=== PATIENT | male | born 1970 | race Caucasian/White ===

== ENCOUNTER 2017-01-14 11:22 | Inpatient (IN) | payer OTHER ==
[~2017-01-14] VITALS: Ht 182.8 cm; Wt 59.9 kg
--- NOTE | ~2017-01-14 | CON ---
[place], [place] REPORT OF CONSULTATION NAME: MELISSA MARISCAL UNIT #: [id number] ROOM: 427 DOCTOR: IVETT HER ED.D (ALEX) BIRTHDATE: [birth year] DOS: 01/15/2017 HISTORY OF PRESENT ILLNESS: The patient is a 46-year-old male referred by the hospitalist for depression and alcohol dependence. At the present time, this patient is in the intensive care unit [facility]. He states he is and has several stepchildren. He last worked at the ____ [employer] in [facility]. He does not have a family physician. However, his medical history is pertinent for depression, alcohol dependence and hypertension. He was prescribed lisinopril; however, he was not taking the medication because he had not gone to the doctor. He states he drinks 1-2 cases of beer every few days bring his total to at least 4 cases of beer a week. He also drinks vodka on at times. He smokes 1 pack of cigarettes per day. He denies any other substance abuse issues. This patient was awake, alert and oriented in all three spheres. He denies any auditory or visual hallucinations or delusions and denies suicidal ideation or plan. He states he has been depressed and anxious about quitting alcohol, but states he needs help. He did follow at [facility] in [place], [place] in the past but did not follow up much with his treatment. He states he is willing to follow up after discharge and he will most likely follow up either at the counseling center or at [facility] for dual diagnosis. Again, he adamantly denies any suicidal ideation or plan, but does admit to feeling depressed and anxious. DIAGNOSES: 1. Major depressive disorder, recurrent. 2. Alcohol dependence. 3. Alcohol withdrawal. RECOMMENDATIONS: The patient should follow up at the counseling center or [facility] for outpatient treatment of alcoholism and depression and anxiety once he is discharged from the hospital. Thank you very much for this consult. IVETT HER ED.D CM:CONSTR:REPORT OF CONSULTATION 1345 01/16/17 0455 interface
[~2017-01-14 11:22] MED LIST: AMOXICILLIN500 MG PO; AMOXIL500 MG PO; ANAPROX DS550 MG PO; BACTRIM DS 8001 TAB PO; CHLORDIAZEPOXID25 M1 PO; DOXYCYCLINE100 M3 PO; KEFLEX500 M1 PO; NEXIUM40 MG PO; NORCO 325 MG-51 TAB PO; OMEPRAZOLE MAGN20 MG PO; PARAFON FORTE500 MG PO; PREDNICOT10 MG PO; PREDNISONE20 MG PO; PRILOSEC20 M1 PO; PRILOSEC20 M2 PO; PRINIVIL10 MG PO; Peridex 473 ML473 ML PO; ULTRAM50 MG PO; WELLBUTRIN XL300 MG PO; ZESTRIL,PRINIVI10 MG PO; ZITHROMAX Z PA250 MG PO; ZYRTEC10 MG PO
[2017-01-14 11:35] VITALS: BP 184/106
[2017-01-14 11:57] LABS: BASO # 0.1 10*3/uL (0.0-0.1); EOS % 0.5 % (1.0-4.0); HEMATOCRIT 53.5 % (42.0-52.0); HEMOGLOBIN 18.5 g/dl (14.0-18.0); LYMPH # 1.7 10*3/uL (1.3-4.4); LYMPH % 29.5 % (27.0-41.0); MEAN CELL VOLUME 93.9 fl (80.0-94.0); MEAN CORPUSCULAR HGB 32.5 pg (27.0-31.0); MEAN CORPUSCULAR HGB CONC 34.6 g/dl (33.0-37.0); MEAN PLATELET VOLUME 9.1 fl (9.6-12.3); MONO # 0.9 10*3/uL (0.1-1.0); MONO % 15.9 % (3.0-9.0); NEUT # 3.1 10*3/uL (2.3-7.9); NEUT % 52.9 % (47.0-73.0); PLATELET COUNT AUTOMATED 201 10*3/uL (130-400); RED CELL DISTRI WIDTH 13.3 % (0-14.5); WHITE BLOOD COUNT 5.8 10*3/uL (4.8-10.8)
[2017-01-14 12:08] LABS: BUN 7 mg/dl (7-24); CARBON DIOXIDE 28 mmol/L (21-32); CHLORIDE 102 mmol/L (98-107); EST GLOM FILT AFRICAN AMERICAN > 60 ml/min; GLUCOSE 104 mg/dL (65-99); POTASSIUM 3.7 mmol/L (3.5-5.1); SODIUM 138 mmol/L (136-145)
[2017-01-14 12:19] LABS: BILIRUBIN NEGATIVE (NEGATIVE); BLOOD TRACE-INTACT (NEGATIVE); CLARITY CLEAR (CLEAR); COLOR STRAW (YELLOW); GLUCOSE 1+ (NEGATIVE); KETONE NEGATIVE (NEGATIVE); LEUKO ESTERASE NEGATIVE (NEGATIVE); NITRITE NEGATIVE (NEGATIVE); PROTEIN NEGATIVE (NEGATIVE); SPECIFIC GRAVITY <= 1.005 (1.005-1.030); UROBILINOGEN 0.2 E.U./dl (0.2-1.0)
[2017-01-14 12:20] VITALS: BP 124/82
[2017-01-14 12:23] LABS: URINE AMPHETAMINES < 1000 (1000ng/ml); URINE BARBITURATES < 200 (200ng/ml); URINE COCAINE < 300 (300ng/ml)
[2017-01-14 12:30] VITALS: BP 148/92
[2017-01-14 12:33] VITALS: BP 140/92
[2017-01-14 12:43] LABS: EPITHELIAL CELLS 0-2; URINE REFLEX COMMENT NO (NO)
[2017-01-14 13:55] LABS: INTERNATIONAL NORM RATIO 0.9 (2.0-3.5); PROTHROMBIN TIME 9.7 SECONDS (9.0-12.4)
[2017-01-14 14:00] LABS: ALBUMIN 4.2 gm/dl (3.1-4.5); ALKALINE PHOSPHATASE 98 U/L (45-117); BUN 6 mg/dl (7-24); CARBON DIOXIDE 30 mmol/L (21-32); CHLORIDE 104 mmol/L (98-107); EST GLOM FILT AFRICAN AMERICAN > 60 ml/min; GLUCOSE 107 mg/dL (65-99); POTASSIUM 3.8 mmol/L (3.5-5.1); SGOT/AST 92 IU/L (3-35); SGPT/ALT 77 U/L (12-78); SODIUM 144 mmol/L (136-145); TOTAL PROTEIN 7.9 gm/dL (6.4-8.2)
[2017-01-14 16:00] VITALS: BP 146/89
[2017-01-14 20:00] VITALS: BP 125/75
[2017-01-15] VITALS: BP 125/77
[2017-01-15 04:00] VITALS: BP 129/84
[2017-01-15 07:22] LABS: BASO # 0.1 10*3/uL (0.0-0.1); BASO % 1.2 % (0.0-1.0); EOS # 0.1 10*3/uL (0.0-0.4); EOS % 1.2 % (1.0-4.0); MEAN CELL VOLUME 95.8 fl (80.0-94.0); MEAN CORPUSCULAR HGB 32.2 pg (27.0-31.0); MEAN CORPUSCULAR HGB CONC 33.6 g/dl (33.0-37.0); MEAN PLATELET VOLUME 9.9 fl (9.6-12.3); MONO # 0.5 10*3/uL (0.1-1.0); MONO % 10.6 % (3.0-9.0); NEUT # 2.7 10*3/uL (2.3-7.9); NEUT % 63.8 % (47.0-73.0); PLATELET COUNT AUTOMATED 150 10*3/uL (130-400); RED BLOOD COUNT 4.56 10*6/uL (4.50-5.90); RED CELL DISTRI WIDTH 13.6 % (0-14.5); WHITE BLOOD COUNT 4.3 10*3/uL (4.8-10.8)
[2017-01-15 07:25] LABS: HEMATOCRIT 43.7 % (42.0-52.0); HEMOGLOBIN 14.7 g/dl (14.0-18.0)
[2017-01-15 07:30] LABS: ALBUMIN 3.3 gm/dl (3.1-4.5); ALKALINE PHOSPHATASE 100 U/L (45-117); BILIRUBIN, TOTAL 1.8 mg/dl (0.2-1.0); BUN 7 mg/dl (7-24); CARBON DIOXIDE 30 mmol/L (21-32); CHLORIDE 106 mmol/L (98-107); EST GLOM FILT AFRICAN AMERICAN > 60 ml/min; GLUCOSE 81 mg/dL (65-99); POTASSIUM 3.7 mmol/L (3.5-5.1); SGOT/AST 174 IU/L (3-35); SGPT/ALT 91 U/L (12-78); SODIUM 142 mmol/L (136-145); TOTAL PROTEIN 6.3 gm/dL (6.4-8.2)
[2017-01-15 08:00] VITALS: BP 129/92
[2017-01-15 12:00] VITALS: BP 145/92
[2017-01-15 16:00] VITALS: BP 155/102
[2017-01-15 20:00] VITALS: BP 164/102
[2017-01-16] VITALS: BP 139/85
[2017-01-16 08:00] VITALS: BP 150/84
== END 2017-01-16 11:55 | disposition home or self-care (01) | DRG 896 ==
LOC: ED 11:22 → EDHOLD 11:54 → 4E 11:54 → ICCU 11:54 → 5E 11:59 → ICCU 13:43 → 4E 01-15 17:36
PROVIDERS: Emergency Medicine; Internal Medicine
DX: F10.231 Alcohol dependence with withdrawal delirium (principal); E43 Unspecified severe protein-calorie malnutrition; F33.9 Major depressive disorder, recurrent, unspecified; Z68.1 Body mass index [BMI] 19.9 or less, adult; F10.229 Alcohol dependence with intoxication, unspecified; I10 Essential (primary) hypertension; R74.0 Nonspecific elevation of levels of transaminase and lactic acid dehydrogenase [LDH]; Y90.8 Blood alcohol level of 240 mg/100 ml or more; K21.9 Gastro-esophageal reflux disease without esophagitis; F41.9 Anxiety disorder, unspecified; Z71.6 Tobacco abuse counseling; Z72.0 Tobacco use; Z83.3 Family history of diabetes mellitus; Z82.49 Family history of ischemic heart disease and other diseases of the circulatory system; Z82.0 Family history of epilepsy and other diseases of the nervous system; Z80.0 Family history of malignant neoplasm of digestive organs

== ENCOUNTER 2017-02-16 18:58 | Emergency (ER) | payer OTHER ==
[~2017-02-16] VITALS: Ht 182.8 cm; Wt 62.1 kg
[2017-02-16 20:42] LABS: BILIRUBIN NEGATIVE (NEGATIVE); BLOOD NEGATIVE (NEGATIVE); CLARITY CLEAR (CLEAR); COLOR YELLOW (YELLOW); GLUCOSE NEGATIVE (NEGATIVE); KETONE NEGATIVE (NEGATIVE); LEUKO ESTERASE NEGATIVE (NEGATIVE); NITRITE NEGATIVE (NEGATIVE); PH 5.5 (5.0-9.0); PROTEIN NEGATIVE (NEGATIVE); SPECIFIC GRAVITY <= 1.005 (1.005-1.030); UROBILINOGEN 0.2 E.U./dl (0.2-1.0)
[2017-02-16 21:02] LABS: BACTERIA TRACE; RBC 0-2 rbc/hpf (0-2); URINE REFLEX COMMENT NO (NO); WBC 0-2 wbc/hpf (0-5)
[2017-02-16 21:37] LABS: BASO # 0.1 10*3/uL (0.0-0.1); BASO % 0.6 % (0.0-1.0); EOS # 0.1 10*3/uL (0.0-0.4); EOS % 0.9 % (1.0-4.0); HEMATOCRIT 42.5 % (42.0-52.0); HEMOGLOBIN 14.5 g/dl (14.0-18.0); LYMPH # 0.9 10*3/uL (1.3-4.4); LYMPH % 7.6 % (27.0-41.0); MEAN CELL VOLUME 95.9 fl (80.0-94.0); MEAN CORPUSCULAR HGB 32.7 pg (27.0-31.0); MEAN CORPUSCULAR HGB CONC 34.1 g/dl (33.0-37.0); MEAN PLATELET VOLUME 9.5 fl (9.6-12.3); MONO # 0.7 10*3/uL (0.1-1.0); MONO % 6.5 % (3.0-9.0); NEUT # 9.4 10*3/uL (2.3-7.9); PLATELET COUNT AUTOMATED 242 10*3/uL (130-400); RED BLOOD COUNT 4.43 10*6/uL (4.50-5.90); WHITE BLOOD COUNT 11.2 10*3/uL (4.8-10.8)
[2017-02-16 21:52] LABS: ALBUMIN 3.1 gm/dl (3.1-4.5); ALKALINE PHOSPHATASE 84 U/L (45-117); BILIRUBIN, TOTAL 1.3 mg/dl (0.2-1.0); BUN 6 mg/dl (7-24); C-REACTIVE PROTEIN 5.49 MG/DL (0-0.3); CARBON DIOXIDE 27 mmol/L (21-32); CHLORIDE 105 mmol/L (98-107); EST GLOM FILT AFRICAN AMERICAN > 60 ml/min; GLUCOSE 101 mg/dL (65-99); POTASSIUM 3.7 mmol/L (3.5-5.1); SGOT/AST 13 IU/L (3-35); SGPT/ALT 19 U/L (12-78); SODIUM 139 mmol/L (136-145); TOTAL PROTEIN 7.1 gm/dL (6.4-8.2)
== END 2017-02-17 00:34 | disposition home or self-care (01) ==
LOC: ED 18:58
PROVIDERS: Physician Assistant
DX: B34.9 Viral infection, unspecified (principal); F17.200 Nicotine dependence, unspecified, uncomplicated

== ENCOUNTER → 2017-03-12 | Outpatient (CLI) | payer OTHER ==
[2017-03-12 10:28] LABS: BASO # 0.1 10*3/uL (0.0-0.1); BASO % 0.5 % (0.0-1.0); EOS # 0.1 10*3/uL (0.0-0.4); EOS % 0.6 % (1.0-4.0); HEMATOCRIT 40.9 % (42.0-52.0); HEMOGLOBIN 13.8 g/dl (14.0-18.0); LYMPH % 10.5 % (27.0-41.0); MEAN CORPUSCULAR HGB 32.4 pg (27.0-31.0); MEAN CORPUSCULAR HGB CONC 33.7 g/dl (33.0-37.0); MEAN PLATELET VOLUME 10.3 fl (9.6-12.3); MONO # 0.6 10*3/uL (0.1-1.0); MONO % 6.5 % (3.0-9.0); NEUT # 7.8 10*3/uL (2.3-7.9); NEUT % 81.5 % (47.0-73.0); PLATELET COUNT AUTOMATED 329 10*3/uL (130-400); RED BLOOD COUNT 4.26 10*6/uL (4.50-5.90); RED CELL DISTRI WIDTH 12.7 % (0-14.5); WHITE BLOOD COUNT 9.6 10*3/uL (4.8-10.8)
[2017-03-12 10:55] LABS: ALBUMIN 2.8 gm/dl (3.1-4.5); BUN 8 mg/dl (7-24); CARBON DIOXIDE 29 mmol/L (21-32); CHLORIDE 103 mmol/L (98-107); CHOLESTEROL 184 mg/dL (<200); EST GLOM FILT AFRICAN AMERICAN > 60 ml/min; GLUCOSE 95 mg/dL (65-99); POTASSIUM 4.5 mmol/L (3.5-5.1); SGOT/AST 8 IU/L (3-35); SGPT/ALT 13 U/L (12-78); SODIUM 138 mmol/L (136-145); TOTAL PROTEIN 7.6 gm/dL (6.4-8.2); TRIGLYCERIDES 86 mg/dl (<150); VLDL CHOLESTEROL 17 mg/dL (6-40)
[2017-03-12 11:04] LABS: ALKALINE PHOSPHATASE 75 U/L (45-117); HDL CHOLESTEROL 40 mg/dl (40-60); LDL CHOLESTEROL 127 mg/dL (9-159)
== END | disposition home or self-care (01) ==
LOC: LAB 08:57
PROVIDERS: Nurse Practitioner Family
DX: Z12.5 Encounter for screening for malignant neoplasm of prostate (principal); I10 Essential (primary) hypertension; F32.9 Major depressive disorder, single episode, unspecified; M54.5 Low back pain

== ENCOUNTER → 2017-04-07 | Outpatient (CLI) | payer OTHER ==
[2017-04-09 01:08] LABS: DILUTE PROTHROMBIN TIME 47.3 sec (0.0-55.0); LUPUS DRVVT 48.7 sec (0.0-47.0); PTT-LA 41.3 sec (0.0-51.9)
== END | disposition home or self-care (01) ==
LOC: LAB 11:30
PROVIDERS: Nurse Practitioner Family
DX: M25.50 Pain in unspecified joint (principal)

== ENCOUNTER → 2017-04-29 | Outpatient (CLI) | payer OTHER | END | disposition home or self-care (01) | LOC: MRI 04-22 08:00 | DX: S02.32XA Fracture of orbital floor, left side, initial encounter for closed fracture (principal); H53.8 Other visual disturbances; R51 Headache; R42 Dizziness and giddiness; X58.XXXA Exposure to other specified factors, initial encounter; Y93.89 Activity, other specified; Y92.89 Other specified places as the place of occurrence of the external cause; Y99.8 Other external cause status ==

== ENCOUNTER → 2017-08-14 | Outpatient (CLI) | payer OTHER | END | disposition home or self-care (01) | LOC: RAD 08-13 16:26 | DX: Z02.9 Encounter for administrative examinations, unspecified (principal); M75.42 Impingement syndrome of left shoulder; M54.2 Cervicalgia; M54.5 Low back pain; M25.562 Pain in left knee ==

== ENCOUNTER → 2018-10-15 | Outpatient (CLI) | payer OTHER ==
[~2018-10-15] MED LIST changes: +CLINDAMYCIN HC300 MG PO; +NAPROSYN500 MG PO; +TYLENOL325 M1 PO
--- NOTE | ~2018-10-15 | EKG ---
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
== END | disposition home or self-care (01) ==
LOC: RAD 17:12
DX: I10 Essential (primary) hypertension (principal); M79.7 Fibromyalgia; Z72.0 Tobacco use; Z87.898 Personal history of other specified conditions

== ENCOUNTER → 2018-11-09 | Outpatient (CLI) | payer OTHER | END | disposition home or self-care (01) | LOC: US 14:25 | DX: N20.0 Calculus of kidney (principal); E34.9 Endocrine disorder, unspecified ==

== ENCOUNTER → 2019-02-05 | Outpatient (CLI) | payer OTHER ==
[2019-02-05 11:42] LABS: ALBUMIN 3.6 gm/dl (3.1-4.5); FREE T4 0.78 ng/dl (0.76-1.46); LDH 139 U/L (87-241)
[2019-02-05 11:48] LABS: BETA-HCG, TUMOR MARKER < 1.0 mIU/mL (<1)
[2019-02-06 09:06] LABS: AFP TUMOR MARKER 002253 1.1 ng/mL (0.0-8.3); FOLLICLE STIMULATING HORMONE 6.6 mIU/mL (1.5-12.4); LUTEINIZING HORMONE 004283 6.6 mIU/mL (1.7-8.6); SEX HORMONE BINDING GLOBULIN 67.6 nmol/L (16.5-55.9)
[2019-02-08 14:06] LABS: TESTOSTERONE FREE, (DIRECT) 13.2 pg/mL (6.8-21.5)
== END | disposition home or self-care (01) ==
LOC: LAB 10:38 → US 11:00
PROVIDERS: Internal Medicine Endocrinology, Diabetes & Metabolism
DX: N52.9 Male erectile dysfunction, unspecified (principal); E34.9 Endocrine disorder, unspecified

== ENCOUNTER 2019-03-02 07:03 | Emergency (ER) | payer OTHER ==
[~2019-03-02] VITALS: Wt 68.0 kg
[~2019-03-02 07:03] MED LIST changes: -CLINDAMYCIN HC300 MG PO; -NAPROSYN500 MG PO; -TYLENOL325 M1 PO
[2019-03-02] MEDS ORDERED: CLINDAMYCIN HC300 MG PO (08:05)
[2019-03-02] MEDS ORDERED: NAPROSYN500 MG PO (08:05)
[2019-03-02] MEDS ORDERED: TYLENOL325 M1 PO (08:05)
== END 2019-03-02 08:20 | disposition home or self-care (01) ==
LOC: ED 07:03
DX: L02.412 Cutaneous abscess of left axilla (principal); L03.112 Cellulitis of left axilla; K21.9 Gastro-esophageal reflux disease without esophagitis; I10 Essential (primary) hypertension; F17.200 Nicotine dependence, unspecified, uncomplicated

== ENCOUNTER 2019-07-31 18:02 | Emergency (ER) | payer OTHER ==
[~2019-07-31] VITALS: Ht 182.8 cm; Wt 63.5 kg
[~2019-07-31 18:02] MED LIST changes: +CLINDAMYCIN HC300 MG PO; +NAPROSYN500 MG PO; +TYLENOL325 M1 PO
[2019-07-31] MEDS ORDERED: CYMBALTA60 MG PO (18:38)
[2019-07-31] MEDS ORDERED: ZESTRIL10 MG PO (18:39)
[2019-07-31] MEDS ORDERED: AMITRIPTYLINE25 MG PO (18:39)
[2019-07-31] MEDS ORDERED: CLINDAMYCIN HC300 MG PO (19:29)
== END 2019-07-31 19:45 | disposition home or self-care (01) ==
LOC: ED 18:02
DX: R04.0 Epistaxis (principal); L02.411 Cutaneous abscess of right axilla; I10 Essential (primary) hypertension; K21.9 Gastro-esophageal reflux disease without esophagitis; F17.200 Nicotine dependence, unspecified, uncomplicated; Z79.899 Other long term (current) drug therapy

== ENCOUNTER 2021-12-25 17:03 | Emergency (ER) | payer OTHER ==
[~2021-12-25] VITALS: Wt 77.1 kg
[~2021-12-25 17:03] MED LIST changes: +AMITRIPTYLINE25 MG PO; +CYMBALTA60 MG PO; +ZESTRIL10 MG PO
== END 2021-12-25 18:16 | disposition left against medical advice (07) ==
LOC: ED 17:03
DX: S61.214A Laceration without foreign body of right ring finger without damage to nail, initial encounter (principal); Z53.21 Procedure and treatment not carried out due to patient leaving prior to being seen by health care provider; W45.8XXA Other foreign body or object entering through skin, initial encounter; Y93.89 Activity, other specified; Y92.89 Other specified places as the place of occurrence of the external cause; Y99.9 Unspecified external cause status

== ENCOUNTER 2022-06-02 13:27 | Emergency (ER) | payer OTHER ==
[~2022-06-02] VITALS: Wt 74.8 kg
== END 2022-06-02 14:39 | disposition left against medical advice (07) ==
LOC: ED 13:27
DX: S99.922A Unspecified injury of left foot, initial encounter (principal); Z79.899 Other long term (current) drug therapy; F17.200 Nicotine dependence, unspecified, uncomplicated; W22.8XXA Striking against or struck by other objects, initial encounter; Y93.89 Activity, other specified; Y92.89 Other specified places as the place of occurrence of the external cause; Y99.8 Other external cause status